=== PATIENT | female | born 2000 | race Caucasian/White ===

== ENCOUNTER 2021-09-09 19:29 | Emergency (ER) | payer OTHER ==
[~2021-09-09] VITALS: Ht 160 cm; Wt 64.0 kg
[2021-09-09] MEDS ORDERED: BENZ100C86 MT (22:30)
[2021-09-09 23:25] VITALS: BP 112/78
== END 2021-09-09 23:25 | disposition home or self-care (01) ==
LOC: ER 19:29
DX: T17.928A Food in respiratory tract, part unspecified causing other injury, initial encounter (principal); X58.XXXA Exposure to other specified factors, initial encounter; Y93.89 Activity, other specified; Y92.89 Other specified places as the place of occurrence of the external cause
CPT/HCPCS: 99281